=== PATIENT | female | born 1950 | race Caucasian/White ===

== ENCOUNTER 2016-04-24 21:47 | Emergency (ER) | payer MEDICARE, OTHER | END 2016-04-25 00:50 | disposition left against medical advice (07) | LOC: ER 21:47 | DX: Z53.9 Procedure and treatment not carried out, unspecified reason (principal); R06.02 Shortness of breath ==

== ENCOUNTER 2017-08-08 14:47 | Emergency (ER) | payer MEDICARE, OTHER ==
[2017-08-08 14:54] VITALS: BP 158/93
--- NOTE | 2017-08-08 15:28 | ER Document Report ---
HPI - HPI Pain Level: 3 Notes: Patient is a 66-year-old female with a history of type 2 diabetes and hypertension who presents to the ED complaining of joint pain to her third right PIP joint of the hand 1 day without known injury. Patient states that yesterday she was watering her plants and was gripping with her right hand and does not believe that started causing her pain or not. Patient states that she does have trouble with flexion due to pain and swelling. She has not noticed any redness or bruising. No other concerns or complaints. Denies any headache , fever, URI, sore throat, chest pain, palpitations, syncope, cough, shortness of breath, wheeze, dyspnea, abdominal pain, nausea/vomiting/diarrhea, urinary retention, dysuria, hematuria, numbness/tingling, muscle paralysis/weakness, or rash. - ROS Systems Reviewed and Negative: Yes All other systems reviewed and negative - REPRODUCTIVE Reproductive: DENIES: : Past Medical History - Social History Smoking Status: Never Smoker Family History: Reviewed & Not Pertinent - Past Medical History Cardiac Medical History: Reports: Hx Hypertension Denies: Hx Heart Attack Pulmonary Medical History: Denies: Hx Asthma Neurological Medical History: Denies: Hx Cerebrovascular Accident, Hx Seizures Endocrine Medical History: Reports: Hx Diabetes Mellitus Type 2 GI Medical History: Denies: Hx Hepatitis, Hx Hiatal Hernia, Hx Ulcer Musculoskeltal Medical History: Reports Hx Arthritis Infectious Medical History: Denies: Hx Hepatitis Past Surgical History: Reports: Hx Cholecystectomy, Hx Hysterectomy, Hx Orthopedic Surgery - "low back surgery". Denies: Hx Mastectomy, Hx Open Heart Surgery, Hx Pacemaker - Immunizations Immunizations up to date: Yes Hx Diphtheria, Pertussis, Tetanus Vaccination: Yes - 2011 Hx Pneumococcal Vaccination: 02/06/12 Vertical Provider Document - CONSTITUTIONAL Agree With Documented VS: Yes Notes: PHYSICAL EXAMINATION: GENERAL: Well-appearing, well-nourished and in no acute distress. LUNGS: Breath sounds clear to auscultation bilaterally and equal. No wheezes rales or rhonchi. HEART: Regular rate and rhythm without murmurs, rubs, gallops. Musculoskeletal: Rt 3rd digit of hand: + swelling to the PIP joint w/o any erythema, warmth, ecchymosis. + tenderness to palp of the PIP joint. LROM to passive/active at the PIP joint. Strength 5+/5. N/V intact distal. Extremities: No cyanosis, clubbing, or edema b/l. Peripheral pulses 2+. Capillary refill less than 3 seconds. NEUROLOGICAL: Normal speech, normal gait. Normal sensory, motor exams PSYCH: Normal mood, normal affect. SKIN: Warm, Dry, normal turgor, no rashes or lesions noted. - INFECTION CONTROL TRAVEL OUTSIDE OF THE [place] IN LAST 30 DAYS: No Course - Re-evaluation Re-evalutation: 08/08/17 16:24 Patient is an afebrile, well-hydrated, 66-year-old female who presents to the ED with joint pain of the PIP joint on her third digit right hand. Vitals are acceptable. PE is otherwise unremarkable for any neurovascular compromise, obvious tendon/ligament rupture, obvious fracture/dislocation, septic joint. There is no sign of infection without any erythema, induration, fluctuance, warmth. There is no opening to the skin or abrasion/puncture wound. X-ray was unremarkable for any acute pathology aside from arthritic changes. Finger splint given today. Recommend conservative measures for symptoms at this time. No other labs or imaging warranted at this time based on H&P. Patient most likely injured her finger when she was watering plants and squeezing onto the handle throughout the day yesterday, the patient will need to monitor for any signs of infection or worsening symptoms hereafter. I will send her home with a prescription for Voltaren. Conservative measures otherwise for symptoms. Recheck with your PCM in 2-3 days. Consider consult orthopedics. Return to the ED with any worsening/concerning symptoms otherwise as reviewed in discharge. Patient is in agreement. - Vital Signs Vital signs: Temp Pulse Resp BP Pulse Ox 98.1 F 100 16 158/93 H 95 08/08/17 14:53 08/08/17 14:53 08/08/17 14:53 08/08/17 14:53 08/08/17 14:53 Discharge - Discharge Clinical Impression: Finger pain, right Condition: Stable Disposition: HOME, SELF-CARE Additional Instructions: Rest, Ice, Compression, Elevation Use splint as directed Tylenol/ibuprofen as needed Light stretches daily Strength exercises as able Moist heat and massage may help F/u with your PCP in 2-3 days for a recheck Consider consult(s) with Orthopedics/physical therapy for ongoing/worsening symptoms Return to the ED with any worsening symptoms and/or development of fever, headache, chest pain, palpitations, syncope, shortness of breath, trouble breathing, abdominal pain, n/v/d, muscle weakness/paralysis, numbness/tingling, swelling, redness, or other worsening symptoms that are concerning to you. Prescriptions: Diclofenac Sodium [Voltaren] 4 gm TP QID PRN #100 gel..gm. PRN Reason: Forms: Elevated Blood Pressure Referrals: [facility] ([facility]) [Provider Group] - Follow up as needed
--- NOTE | 2017-08-08 16:09 | RADIOLOGY REPORT (SQ) ---
EXAM DESCRIPTION: HAND RIGHT 3 VIEWS COMPLETED DATE/TIME: 08/08/2017 3:51 pm REASON FOR STUDY: 3rd digit PIP joint swelling, pain COMPARISON: None. EXAM PARAMETERS: NUMBER OF VIEWS: Three views. TECHNIQUE: AP, lateral and oblique radiographic images acquired of the right hand. LIMITATIONS: None. FINDINGS: MINERALIZATION: Normal. BONES: No acute fracture or dislocation. No worrisome bone lesions. JOINTS: Degenerative joint disease in the interphalangeal joints and in the 1st carpometacarpal joint . There is mild chronic subluxation of the 3rd proximal interphalangeal joint. SOFT TISSUES: No soft tissue swelling. No foreign body. OTHER: No other significant finding. IMPRESSION: Degenerative joint disease. TECHNICAL DOCUMENTATION: JOB ID: [id number] [employer]- All Rights Reserved Reading location - IP/workstation name: [email or web address]
== END 2017-08-08 16:45 | disposition home or self-care (01) ==
LOC: ER 14:47
DX: M19.041 Primary osteoarthritis, right hand (principal); M25.541 Pain in joints of right hand; M25.441 Effusion, right hand; E11.9 Type 2 diabetes mellitus without complications; I10 Essential (primary) hypertension
CPT/HCPCS: 99283